=== PATIENT | female | born 1985 | race American Indian/Alaskan Native ===

== ENCOUNTER 2016-05-19 14:51 | Emergency (ER) | payer MEDICAID ==
[2016-05-19 14:51] VITALS: BMI 20.5
[2016-05-19 15:01] VITALS: RESP 18; O2SAT 99
--- NOTE | 2016-05-19 15:35 | C.PDOC ---
History Of Present Illness 30 y/o F c PMHx Depression p/w chest pain and back pain since this morning. Patient states she was helping her mother cook and afterward, she noticed that she was having a R parasternal sharp pain and a R upper back pain. She describes the pains as sharp, exacerbated by movement or twisting of thorax and palpation. She denies nausea, diaphoresis, dyspnea, fever. Time Seen by Provider: 05/19/16 15:20 Chief Complaint (Nursing): Back Pain Past Medical History Vital Signs: Last Vital Signs Temp 98.5 F 05/19/16 15:00 Pulse 64 05/19/16 15:00 Resp 18 05/19/16 15:00 BP 114/74 05/19/16 15:00 Pulse Ox 99 05/19/16 15:35 - Medical History PMH: Anxiety, Depression, Fractures (JAW), Sexually Transmitted Disease ( CHLAMYDIA) Denies: Chronic Kidney Disease - [facility] Procedures DENTAL WIRING (07/14/14) OPEN REDUCT MANDIBLE FX (07/14/14) Family History: States: Unknown Family Hx - Social History Hx Tobacco Use: No Hx Alcohol Use: No Hx Substance Use: No - Immunization History Hx Tetanus Toxoid Vaccination: No Hx Influenza Vaccination: No Hx Pneumococcal Vaccination: No Review Of Systems Except As Marked, All Systems Reviewed And Found Negative. Constitutional: Negative for: Fever Cardiovascular: Positive for: Chest Pain Respiratory: Negative for: Shortness of Breath Physical Exam - Physical Exam Additional Physical Exam Comments: Constitutional: No acute distress. Head: Normocephalic. Atraumatic. Eyes: PERRL. EOMI ENT: Moist mucous membranes. Neck: Supple. Cardiovascular: Regular rate. Radial pulses 2+ bilaterally. Chest: +Reproducible tenderness and reproducible pain with pectoral muscle use. Respiratory: Clear to auscultation bilaterally. Equal breath sounds bilaterally. No rhonchi, wheezing, or crackles. GI: Soft. Nontender. Nondistended. Back: No midline tenderness. Reproducible tenderness in focal area on R upper back. Musculoskeletal: No tenderness or swelling of extremities. Skin: No rash. Neurologic: Alert, no focal deficit. ED Course And Treatment O2 Sat by Pulse Oximetry: 99 Medical Decision Making Medical Decision Making: EKG: Ordered, reviewed, and independently interpreted the EKG. Rate: 80 BPM Rhythm: Normal Sinus Rhythm Interpretation: No ST-segment elevations or depressions, no T-wave inversions. Reproducible symptoms, young age, normal EKG. Unlikely ACS. Vital signs normal. Will treat with Toradol IM, f/u PMD, instructed to return to the ER for fever or dyspnea. Disposition Counseled Patient/Family Regarding: Studies Performed, Diagnosis, Need For Followup, Rx Given - Disposition Referrals: Dayana Winchester MD [Non-Staff] - Disposition: HOME/ ROUTINE Disposition Time: 15:49 Condition: STABLE Prescriptions: Ibuprofen [Motrin] 600 mg PO Q6 #25 tab Instructions: Chest Wall Pain (ED) - Clinical Impression Clinical Impression: Chest wall pain
[2016-05-19 16:05] VITALS: PULSE 74
[2016-05-19 16:41] VITALS: BP 117/74; TEMP 98.1
--- NOTE | 2016-05-20 23:08 | CARD ---
APPROVED REPORT EKG Measurement Heart [id number] <Conclusion> Normal sinus rhythm Normal ECG
== END 2016-05-19 16:39 | disposition home or self-care (01) ==
LOC: C.ER 14:51
DX: R07.89 Other chest pain (principal)
CPT/HCPCS: 93005; 96372; 99285; J1885

== ENCOUNTER 2016-12-30 12:38 | Emergency (ER) | payer MEDICAID ==
[2016-12-30 12:38] VITALS: BMI 20.5
[2016-12-30 13:28] VITALS: BP 118/72; PULSE 73; RESP 20; TEMP 98; O2SAT 95
--- NOTE | 2016-12-30 13:33 | C.PDOC ---
History Of Present Illness 31 yr old female presents to the ER stating yesterday she suddenly stood up from a chair and felt a cracking sensation in the left knee, associated with swelling and pain. Patient states the pain has not resolved today and decided to come in. Patient reports the pain is 4/10, dull, constant, increases with movement and particularly with extension of the knee. Otherwise patient denies fever, chills, back pain, foot pain, weakness or numbness. Time Seen by Provider: 12/30/16 13:23 Chief Complaint (Nursing): Lower Extremity Problem/Injury History Per: Patient History/Exam Limitations: no limitations Onset/Duration Of Symptoms: Days (1) Current Symptoms Are (Timing): Still Present Recent travel outside of the [place]: No Past Medical History Reviewed: Historical Data, Nursing Documentation, Vital Signs Vital Signs: Last Vital Signs Temp 98.0 F 12/30/16 13:24 Pulse 73 12/30/16 13:24 Resp 20 12/30/16 13:24 BP 118/72 12/30/16 13:24 Pulse Ox 95 12/30/16 13:24 - Medical History PMH: Anxiety, Depression, Fractures (JAW), Sexually Transmitted Disease ( CHLAMYDIA) - [facility] Procedures DENTAL WIRING (07/14/14) OPEN REDUCT MANDIBLE FX (07/14/14) Family History: States: No Known Family Hx - Social History Hx Tobacco Use: No Hx Alcohol Use: No Hx Substance Use: No - Immunization History Hx Tetanus Toxoid Vaccination: No Hx Influenza Vaccination: No Hx Pneumococcal Vaccination: No Review Of Systems Except As Marked, All Systems Reviewed And Found Negative. Constitutional: Negative for: Fever, Chills Musculoskeletal: Positive for: Other ((+) Left knee pain.). Negative for: Back Pain, Foot Pain Neurological: Negative for: Weakness, Numbness Physical Exam - Physical Exam Appears: Non-toxic, No Acute Distress Skin: Warm, Dry Extremity: Normal ROM (Left knee), No Calf Tenderness, Other (Left Knee - Edema. Fluid build up to the medial aspect of the knee. Tenderness. ) Neurological/Psych: Oriented x3, Normal Speech, Normal Motor, Normal Sensation Gait: Steady ED Course And Treatment Progress Note: Rogelio wrap applied by copier and printer field technician. Patient dischagred home with Motrin and Tylenol. Instructed to follow up with PMD for further evaluation. Disposition Counseled Patient/Family Regarding: Diagnosis, Need For Followup, Rx Given - Disposition Referrals: Herbie Hagan III, MD [Staff Provider] - Disposition: HOME/ ROUTINE Disposition Time: 13:42 Condition: STABLE Additional Instructions: Follow up with Orthopedics if no resolution in one week. Prescriptions: Ibuprofen [Motrin] 600 mg PO TID #15 tab Lidocaine 5% [Lidoderm] 1 ea TD DAILY #3 patch Instructions: RICE Therapy (ED) Forms: [employer] ([place]), General Discharge Instructions - POA Present On Arrival: None - Clinical Impression Clinical Impression: Left knee sprain - Scribe Statement The provider has reviewed the documentation as recorded by the Josselinibe Annalisa Kulkarni Provider Attestation: All medical record entries made by the Josselinibe were at my direction and personally dictated by me. I have reviewed the chart and agree that the record accurately reflects my personal performance of the history, physical exam, medical decision making, and the department course for this patient. I have also personally directed, reviewed, and agree with the discharge instructions and disposition.
== END 2016-12-30 13:58 | disposition home or self-care (01) ==
LOC: C.ER 12:38
DX: S83.92XA Sprain of unspecified site of left knee, initial encounter (principal); X50.0XXA Overexertion from strenuous movement or load, initial encounter; Y93.89 Activity, other specified; Y92.89 Other specified places as the place of occurrence of the external cause

== ENCOUNTER 2017-06-20 13:40 | Emergency (ER) | payer MEDICAID ==
[2017-06-20 13:48] VITALS: BMI 26.9
--- NOTE | 2017-06-20 15:23 | C.PDOC ---
History Of Present Illness 31 year old female presents to the ED c/o right lateral ankle pain and swelling for the past 3 days. Patient does not recall any injury and states ankle hurts when walking. Patient denies fall, trauma, weakness, numbness. Time Seen by Provider: 06/20/17 14:06 Chief Complaint (Nursing): Lower Extremity Problem/Injury History Per: Patient History/Exam Limitations: no limitations Onset/Duration Of Symptoms: Days Current Symptoms Are (Timing): Still Present Recent travel outside of the [place]: No Additional History Per: Patient - Ankle/Foot Description Of Injury: Other Currently Unable To: Bear Weight Past Medical History Reviewed: Historical Data, Nursing Documentation, Vital Signs Vital Signs: Last Vital Signs Temp 98.2 F 06/20/17 15:56 Pulse 64 06/20/17 15:56 Resp 16 06/20/17 15:56 BP 112/72 06/20/17 15:56 Pulse Ox 99 06/20/17 21:06 - Medical History PMH: Anxiety, Depression, Fractures (JAW), Sexually Transmitted Disease ( CHLAMYDIA) Denies: Chronic Kidney Disease Surgical History: No Surg Hx - [facility] Procedures DENTAL WIRING (07/14/14) OPEN REDUCT MANDIBLE FX (07/14/14) Family History: States: Unknown Family Hx - Social History Hx Tobacco Use: No Hx Alcohol Use: No Hx Substance Use: No - Immunization History Hx Tetanus Toxoid Vaccination: No Hx Influenza Vaccination: No Hx Pneumococcal Vaccination: No Review Of Systems Constitutional: Negative for: Fever, Chills Respiratory: Negative for: Cough, Shortness of Breath Musculoskeletal: Positive for: Foot Pain Skin: Negative for: Rash Neurological: Negative for: Weakness, Numbness Physical Exam - Physical Exam Appears: Non-toxic, No Acute Distress Skin: Warm, Dry Extremity: Normal ROM, Tenderness (right lateral malleolus), Capillary Refill ( < 2 seconds), Swelling (right lateral malleolus) Pulses: Left Dorsalis Pedis: Normal, Right Dorsalis Pedis: Normal Neurological/Psych: Oriented x3, Normal Speech, Normal Motor, Normal Sensation Gait: Steady ED Course And Treatment O2 Sat by Pulse Oximetry: 99 (ON RA) Pulse Ox Interpretation: Normal Medical Decision Making Medical Decision Making: Plan: * Tylenol 975 mg PO * Right ankle X-Ray 1543- no fx noted on xray, will apply bharath bandage and d/c with ortho f/u Disposition - Disposition Referrals: [facility] [place] [Outside] Podiatry Clinic [Outside] Disposition: HOME/ ROUTINE Disposition Time: 15:44 Condition: GOOD Additional Instructions: Wear bharath bandage to help reduce swelling. Keep right leg elevated when possible. Apply cold compresses to right lateral ankle for 20 minute interval several times a day. Follow up with orthpedic or podiatry clinic next week if hernandez and swelling persist. Tylenol or Motrin for pain. Prescriptions: Acetaminophen [Tylenol 325mg tab] 650 mg PO Q6 #30 tab Instructions: Ankle Sprain (DC) Forms: [employer] ([place]), General Discharge Instructions - Clinical Impression Clinical Impression: Right ankle sprain - PA / LICENSED [employer] WORKER / Resident Statement MD/DO has reviewed & agrees with the documentation as recorded. - Scribe Statement The provider has reviewed the documentation as recorded by the Scribe Arian Barr All medical record entries made by the Scribe were at my direction and personally dictated by me. I have reviewed the chart and agree that the record accurately reflects my personal performance of the history, physical exam, medical decision making, and the department course for this patient. I have also personally directed, reviewed, and agree with the discharge instructions and disposition.
--- NOTE | 2017-06-20 15:52 | RAD ---
PROCEDURE: Right Ankle Radiographs. HISTORY: lateral malleolus swelling and pain COMPARISON: None FINDINGS: BONES: Small chip or avulsion fracture seen related to the posterior malleolus distal right tibia with overlying soft tissue edema appearing quite mild. No large fracture. No dislocation throughout the exam. Ankle mortise appears intact. Limited pre ankle edema is also identified. JOINTS: As above. SOFT TISSUES: As above. OTHER FINDINGS: None. IMPRESSION: Linear chip or avulsion fracture seen posterior to the posterior malleolus without dislocation or subluxation. Limited soft tissue edema is seen at the ankle as discussed above.
[2017-06-20 15:56] VITALS: BP 112/72; PULSE 64; RESP 16; TEMP 98.2
[2017-06-20 21:06] VITALS: O2SAT 99
== END 2017-06-20 16:05 | disposition home or self-care (01) ==
LOC: C.ER 13:40
DX: S93.401A Sprain of unspecified ligament of right ankle, initial encounter (principal); X58.XXXA Exposure to other specified factors, initial encounter